=== PATIENT | male | born 1990 | race Caucasian/White ===

== ENCOUNTER 2016-12-21 18:58 | Emergency (ER) | payer BC ==
[2016-12-21 19:06] VITALS: RESP 16; TEMP 97.7
--- NOTE | 2016-12-21 19:19 | CPEKG ---
Heart Rate: 53 RR Interval: 1132 P-R Interval: 152 QRSD Interval: 114 QT Interval: 436 QTC Interval: 410 P Gulliver: 11 QRS Gulliver: 62 T Wave Gulliver: 37 EKG Severity - ABNORMAL ECG - EKG Impression: SINUS RHYTHM EKG Impression: INCOMPLETE RIGHT BUNDLE BRANCH BLOCK EKG Impression: PROBABLE LEFT VENTRICULAR HYPERTROPHY Electronically Signed By: Tiffany Mcelroy 21-Dec-2016 21:35:19
--- NOTE | 2016-12-21 19:36 | EDPHY ---
H & P Time Seen by Provider: 12/21/16 19:14 HPI/ROS: CHIEF COMPLAINT: Near syncope HISTORY OF PRESENT ILLNESS: The patient is a 26-year-old male presenting with near syncopal episode. The patient was standing at a constitution party for a few hours. He began to feel lightheaded, diaphoretic, and became pale. His heart rate went from 60 to 40bpm. The patient sat down and felt slightly better. When he tried to stand up he collapsed.The patient ate and drank normally today. He does note that he ate an edible today, but does not usually experience these symptoms after eating one. The patient has experienced similar symptoms twice this summer after completing an [employer] race. 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 After both of his races he became pale and felt near syncopal. This usually lasts for about 30 minutes after the race. He denies associated chest pain or shortness of breath. REVIEW OF SYSTEMS: A comprehensive 10 point review of systems is otherwise negative aside from elements mentioned in the history of present illness. 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 Smoking Status: Former smoker Physical Exam: General Appearance: Alert, pleasant Eyes: Pupils equal and round, no conjunctival pallor or injection ENT, Mouth: Mucous membranes moist Neck: Normal inspection Respiratory: Lungs are clear to auscultation Cardiovascular: Regular rate and rhythm Gastrointestinal: Abdomen is soft and non-tender Neurological: A&O, nonfocal, normal gait Skin: Warm and dry, no rash Extremities: Nontender, no pedal edema Psychiatric: Mood and affect normal Constitutional: Initial Vital Signs Temperature (C) 36.5 C 12/21/16 19:03 Heart Rate 55 L 12/21/16 19:03 Respiratory Rate 16 12/21/16 19:03 Blood Pressure 124/72 H 12/21/16 19:03 O2 Sat (%) 97 12/21/16 19:03 O2 Delivery Mode Room Air Allergies/Adverse Reactions: No Known Allergies Allergy (Verified 12/21/16 19:06) Home Medications: Medication Instructions Recorded NK [No Known Home Meds] 12/21/16 Medical Decision Making - Diagnostics EKG Interpretation: EKG interpreted by me reveals normal sinus rhythm, Incomplete RBBB, Probable left ventricular hypertrophy. Interpretation: No ischemia. ED Course/Re-evaluation: Patient presents with near syncopal event after standing for a few hours at a constitution party. The patient developed lightheadedness, diaphoresis, and appeared pale. His heart rate dropped from 60bpm to 40 bpm. No associated chest pain or shortness of breath. The patient had similar symptoms twice this summer after completing an [employer] race. I suspect the patient's symptoms today are likely vasovagal. I will check patient's electrolytes. IV was established, patient is receiving IV fluids. EKG shows sinus rhythm, incomplete RBBB, and probable left hypertrophy. The patient will follow up with a static balancer in regards to symptoms occurring after exertion for ECHO/further cardiac evaluation as indicated. Will avoid strenuous exertion until he follows up with a static balancer. Differential Diagnosis: Differential diagnosis includes though is not limited to cardiac dysrhythmia, CVA, TIA, GI bleed, sepsis, hypoglycemia. - Data Points Laboratory Results: Laboratory Results 12/21/16 19:20 12/21/16 19:20 12/21/16 12/21/16 19:20 19:20 WBC 6.72 10^3/uL 10^3/uL (3.80-9.50) RBC 4.65 10^6/uL 10^6/uL (4.40-6.38) Hgb 14.5 g/dL g/dL (13.7-17.5) Hct 42.7 % % (40.0-51.0) MCV 91.8 fL fL (81.5-99.8) MCH 31.2 pg pg (27.9-34.1) MCHC 34.0 g/dL g/dL (32.4-36.7) RDW 13.3 % % (11.5-15.2) Plt Count 170 10^3/uL 10^3/uL (150-400) MPV 10.1 fL fL (8.7-11.7) Neut % (Auto) 46.9 % % (39.3-74.2) Lymph % (Auto) 40.9 % % (15.0-45.0) [place] % (Auto) 9.5 % % (4.5-13.0) Eos % (Auto) 1.8 % % (0.6-7.6) Baso % (Auto) 0.6 % % (0.3-1.7) Nucleat RBC Rel Count 0.0 % % (0.0-0.2) Absolute Neuts (auto) 3.15 10^3/uL 10^3/uL (1.70-6.50) Absolute Lymphs (auto) 2.75 10^3/uL 10^3/uL (1.00-3.00) Absolute Monos (auto) 0.64 10^3/uL 10^3/uL (0.30-0.80) Absolute Eos (auto) 0.12 10^3/uL 10^3/uL (0.03-0.40) Absolute Basos (auto) 0.04 10^3/uL 10^3/uL (0.02-0.10) Absolute Nucleated RBC 0.00 10^3/uL 10^3/uL (0-0.01) Immature Gran % 0.3 % % (0.0-1.1) Immature Gran # 0.02 10^3/uL 10^3/uL (0.00-0.10) Sodium 137 mEq/L mEq/L (134-144) Potassium 4.2 mEq/L mEq/L (3.5-5.2) Chloride 101 mEq/L mEq/L (97-110) Carbon Dioxide 28 mEq/l mEq/l (22-31) Anion Gap 8 mEq/L mEq/L (8-16) BUN 22 mg/dL mg/dL (7-23) Creatinine 1.0 mg/dL mg/dL (0.7-1.3) Estimated GFR > 60 Glucose 97 mg/dL mg/dL (70-100) Calcium 9.8 mg/dL mg/dL (8.5-10.4) Medications Given: Discontinued Medications Sodium Chloride (Ns) 1,000 mls @ 0 mls/hr IV EDNOW ONE; Wide Open PRN Reason: Protocol Stop: 12/21/16 19:41 Last Admin: 12/21/16 19:48 Dose: 1,000 mls Departure - Departure Disposition: Home, Routine, Self-Care Clinical Impression: Near syncope Condition: Good Instructions: Near Syncope (ED) Additional Instructions: Drink plenty of fluids. You have been referred to our educational diagnostician [facility] Chief Exploration Officer below. I recommend you call to arrange a follow up appointment in regards to your symptoms occurring after exertion. Referrals: Moris Cullen MD [Medical Doctor] - As per Instructions ([facility] Chief Exploration Officer referral : Call in the morning to make an appointment.) Report Scribed for: Tiffany Mcelroy Report Scribed by: Lolis Jennings Date of Report: 12/21/16 Time of Report: 19:37 Physician Review and Approval Statement: 12/21/16 19:37 Portions of this note were transcribed by a lpn medical assistant. I personally performed the history, physical exam, and medical decision-making; and confirmed the accuracy of the information in the transcribed note.
[2016-12-21] MEDS ORDERED: NS 1,000 ML IV ONE (19:40)
[2016-12-21 19:44] LABS: % IMMATURE GRANULYOCYTES 0.3 % (0.0-1.1); ABSOLUTE IMMATURE GRANULOCYTES 0.02 10^3/uL (0.00-0.10); ADD DIFF? NO; ADD MORPH? NO; ADD SCAN? NO; ATYPICAL LYMPHOCYTE FLAG 10 (0-99); FRAGMENT RBC FLAG 0 (0-99); HEMATOCRIT 42.7 % (40.0-51.0); HEMOGLOBIN 14.5 g/dL (13.7-17.5); LEFT SHIFT FLG 0 (0-99); LIPEMIA HEMOLYSIS FLAG 90 (0-99); MEAN CELL HEMOGLOBIN 31.2 pg (27.9-34.1); MEAN CELL VOLUME 91.8 fL (81.5-99.8); MEAN PLATELET VOLUME 10.1 fL (8.7-11.7); PLATELET CLUMPS FLAG 0 (0-99); PLATELET COUNT 170 10^3/uL (150-400); RED BLOOD CELL COUNT 4.65 10^6/uL (4.40-6.38); RED CELL DISTRIBUTION WIDTH 13.3 % (11.5-15.2)
[2016-12-21 19:50] LABS: ANION GAP 8 mEq/L (8-16); CALCIUM 9.8 mg/dL (8.5-10.4); CARBON DIOXIDE 28 mEq/l (22-31); CHLORIDE 101 mEq/L (97-110); GLOMERULAR FILTRATION RATE > 60; GLUCOSE 97 mg/dL (70-100); POTASSIUM 4.2 mEq/L (3.5-5.2); SODIUM 137 mEq/L (134-144)
[2016-12-21 20:58] VITALS: BP 122/67; PULSE 47; O2SAT 96
== END 2016-12-21 20:57 | disposition home or self-care (01) ==
DX: R55 Syncope and collapse (principal); Z87.891 Personal history of nicotine dependence

== ENCOUNTER 2017-09-09 13:06 | Emergency (ER) | payer SELFPAY ==
--- NOTE | 2017-09-09 13:30 | CPEKG ---
Heart Rate: 54 RR Interval: 1111 P-R Interval: 156 QRSD Interval: 110 QT Interval: 436 QTC Interval: 414 P Bringhurst: 18 QRS [place]: 70 T Wave [place]: 45 EKG Severity - ABNORMAL ECG - EKG Impression: SINUS RHYTHM EKG Impression: INCOMPLETE RIGHT BUNDLE BRANCH BLOCK EKG Impression: PROBABLE LEFT VENTRICULAR HYPERTROPHY Electronically Signed By: Tiffany Mcelroy 09-Sep-2017 14:37:20
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
[2017-09-09 14:24] VITALS: BP 128/68
== END 2017-09-09 14:23 | disposition home or self-care (01) ==
DX: R07.82 Intercostal pain (principal); Z87.891 Personal history of nicotine dependence

== ENCOUNTER 2018-02-05 11:52 | Emergency (ER) | payer BC ==
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
[2018-02-05 13:19] VITALS: BP 125/70
[2018-02-05] MEDS ORDERED: ACETAMINOPHEN 325 MG TAB PO ONE (13:21)
== END 2018-02-05 13:25 | disposition home or self-care (01) ==
DX: S09.90XA Unspecified injury of head, initial encounter (principal); Z87.891 Personal history of nicotine dependence; V18.4XXA Pedal cycle driver injured in noncollision transport accident in traffic accident, initial encounter; Y93.55 Activity, bike riding; Y92.9 Unspecified place or not applicable; Y99.9 Unspecified external cause status

== ENCOUNTER → 2018-06-10 | Outpatient (CLI) | payer BC ==
[~2018-06-10] MED LIST: IOPAMIDOL (ISOVUE 370) 100 ML BTL IV ONE
== END ==
LOC: FIMAGING 15:39
PROVIDERS: ATTEND Internal Medicine Cardiovascular Disease
DX: R07.9 Chest pain, unspecified (principal); R00.2 Palpitations
CPT/HCPCS: Q9967

== ENCOUNTER → 2018-09-10 | Outpatient (CLI) | payer BC | LOC: BMCIMAGING 09:29 ==